=== PATIENT | male | born 1965 | race Two or more races ===

== ENCOUNTER 2021-07-15 15:56 | Emergency (ER) | payer SELFPAY ==
[~2021-07-15] VITALS: Ht 165.1 cm; Wt 70.0 kg
[2021-07-15 19:47] VITALS: BP 128/79
--- NOTE | 2021-07-15 21:13 | PHYS DOC ---
Past Medical History Past Surgical History: No Surgical History General Adult EDM: Chief Complaint: UPPER EXTREMITY INJURY HPI: HPI: Patient is a 56-year-old male who presents to the emergency department for right elbow, forearm and wrist pain that occurred after he slipped on ice and fell onto his arm yesterday afternoon. Patient rates his pain 9 out of 10. No treatment prior to arrival. Patient denies any decreased range of motion or decreased sensation in his extremity but does report swelling to site. He denies hitting his head or loss of consciousness. Review of Systems: Review of Systems: Musculoskeletal: See HPI Integument: See HPI Neurologic: See HPI Heart Score: C/O Chest Pain: N/A Risk Factors: Risk Factors: DM, Current or recent (<one month) smoker, HTN, HLP, family history of CAD, obesity. Risk Scores: Score 0 - 3: 2.5% MACE over next 6 weeks - Discharge Home Score 4 - 6: 20.3% MACE over next 6 weeks - Admit for Clinical Observation Score 7 - 10: 72.7% MACE over next 6 weeks - Early Invasive Strategies Allergies: Allergies: Allergies Coded Allergies Type Severity Reaction Last Updated Verified No Known Drug Allergies 07/15/21 No Physical Exam: PE: Constitutional: Well developed, well nourished, no acute distress, non-toxic appearance. [] HENT: Normocephalic, atraumatic, bilateral external ears normal, oropharynx moist, no oral exudates, nose normal. [] Eyes: PERRLA, EOMI, conjunctiva normal, no discharge. [] Neck: Normal range of motion, no tenderness, supple, no stridor. [] Cardiovascular: Normal peripheral perfusion Lungs & Thorax: Normal work of breathing, no tachypnea Abdomen: Soft and flat Skin: Warm, dry, no erythema, no rash. [] Back: Normal range of motion Extremities: No tenderness, no cyanosis, no clubbing, ROM intact, no edema. [] Right upper extremity: Obvious deformity noted to patient's right forearm, there is swelling noted to patient's right forearm and wrist with ecchymosis to his forearm, no open wounds, range of motion intact, neurovascularly intact. Neurologic: Alert and oriented X 3, normal motor function, normal sensory function, no focal deficits noted. [] Psychologic: Affect normal, judgement normal, mood normal. [] Current Patient Data: Vital Signs: Vital Signs Date Time Temp Pulse Resp B/P (MAP) Pulse Ox O2 Delivery O2 Flow Rate FiO2 07/15/21 19:47 98.0 84 18 128/79 (95) 99 Room Air 98.0 EKG: EKG: [] Radiology/Procedures: Radiology/Procedures: [] Course & Med Decision Making: Course & Med Decision Making Pertinent Labs and Imaging studies reviewed. (See chart for details) [] Patient presents to the emergency department after slipping on ice and falling onto his right forearm yesterday. Imaging was performed of patient's right elbow, forearm and wrist. Distal radius fracture read by this MILKING SYSTEM INSTALLER and supervising physician. Sugartong splint placed, patient tolerated, neuro intact pre and post splint placement. Pain medication given in ER. Patient discharged with pain medication, advised to follow up with ortho and given referral info. Patient given info on fracture and splint care. tag machine operator used. I discussed with patient all findings and diagnostic testing as well as the need to follow-up with PCP for further evaluation and treatment or return to the ER if any new or worsening symptoms. Strict return precautions were also discussed at length. Patient voiced understanding and agreement with the plan. Patient is hemodynamically stable at the time of disposition. Dragon Disclaimer: Dragon Disclaimer: This electronic medical record was generated, in whole or in part, using a voice recognition dictation system. Departure Departure Impression: Primary Impression: Radius fracture Qualified Codes: S52.501A - Unspecified fracture of the lower end of right radius, initial encounter for closed fracture Disposition: HOME / SELF CARE / HOMELESS Condition: GOOD Referrals: NO PCP (PCP) PEDRO PORTILLO Jr. DO Patient Instructions: Wrist Fracture Additional Instructions: Hoy lo vieron en la mary de emergencias por elliott fractura o un hueso roto. Le colocaron elliott frula para ayudar con el dolor y la curacin. Deber hacer un seguimiento con los mdicos ortopdicos de la clnica ortopdica lo antes posible. Consulte la informacin adjunta sobre el mdico de seguimiento. Debe realizar ejercicios de rango de movimiento para evitar la rigidez de las articulaciones. Las frulas ayudan con el dolor y pueden promover la curacin, saeid la inmovilidad puede causar dolor crnico con el tiempo. Consulte estas instrucciones adjuntas con respecto a los ejercicios de rango de movimiento. Mantenga la frula limpia y seca para evitar que se moje. Si la frula se moja, deber reemplazarla. Debe usar hielo y elevacin para ayudar con la hinchazn y el dolor. Blanca las primeras 24 horas, aplique hielo 20 minutos en 20 minutos 4 veces al da. Asegrese de que el hielo est en elliott bolsa de plstico para no mojar la frula. Puede dominguez medicamentos OBED (Tylenol, ibuprofeno, naproxeno) para aliviar el dolor. Regrese al departamento de emergencias si presenta alguno de los siguientes sntomas: Dolor creciente que no mejora con los tratamientos. [place] entumecimiento u hormigueo [place], enrojecimiento, decoloracin de la piel, rotura de la piel, secrecin debajo de la frula o cerca del jani entablillada. Aumento de la incapacidad para vat overhauler la extremidad o los dedos. Mal olor procedente de la frula Fiebre o escalofros Nuseas o vmitos Aturdimiento persistente Estaremos encantados de verle por cualquier otro sntoma relacionado con rodriguez extremidad entablillada. Scripts Hydrocodone Bit/Acetaminophen (HYDROCODONE-APAP 5-325 ) 1 Tab Tablet 1 TAB PO PRN Q6HRS PRN for PAIN for 2 Days, #8 TAB 0 Refills Prov: EDI ASTORGA CIVIL ENGINEERING TEACHER 07/15/21 EDI ASTORGA CIVIL ENGINEERING TEACHER Jul 15, 2021 21:13
[2021-07-15] MEDS ORDERED: HYDROcodone/APAP 5/325MG 1 TAB TABLET PO ONE (22:00)
[2021-07-15] MEDS ORDERED: HYDR-2761 PO (22:08)
--- NOTE | 2021-07-15 22:10 | RAD ---
Exam: Right wrist 3 views. Right forearm 2 views. Right elbow 3 views INDICATION: Fall TECHNIQUE: Frontal, lateral oblique views of the right wrist and right elbow. Frontal and lateral vie ws of the right forearm Comparisons: None FINDINGS: Wrist: There is a impacted fracture at the distal right radial metaphysis. No other fractures are identified . Mild surrounding soft tissue swelling. Joint spaces are well-maintained. Forearm: Redemonstration of impacted distal radial metaphyseal fracture. Other fracture identified. Soft tissu es are unremarkable. Joint spaces are well-maintained. Elbow: Bone mineralization is normal. No acute or healed fractures. Soft tissues are unremarkable. Joint spa malik are well-maintained. IMPRESSION: 1. Impacted fracture of the distal right radial metaphysis. 2. No other fracture identified at the right forearm. 3. No acute osseous abdomen the of the right elbow. Electronically signed by: Chauncey East MD (07/15/2021 10:08 PM) [facility]
== END 2021-07-15 22:38 | disposition home or self-care (01) ==
LOC: ER 15:56
DX: S52.501A Unspecified fracture of the lower end of right radius, initial encounter for closed fracture (principal); W00.0XXA Fall on same level due to ice and snow, initial encounter; Y93.89 Activity, other specified; Y92.89 Other specified places as the place of occurrence of the external cause; Y99.8 Other external cause status
CPT/HCPCS: 29125; 73080; 73090; 73110; 99284

== ENCOUNTER 2021-08-02 13:32 | Emergency (ER) | payer SELFPAY ==
[~2021-08-02] VITALS: Ht 152.4 cm; Wt 58.0 kg
[~2021-08-02 13:32] MED LIST: HYDR-2761 PO
[2021-08-02 15:20] VITALS: BP 131/80
[2021-08-02] MEDS ORDERED: IBUPROFEN 200 MG TABLET. PO ONE (15:45)
--- NOTE | 2021-08-02 16:14 | RAD ---
EXAM: 3 views of the right wrist DATE: 08/02/2021 3:42 PM INDICATION: Reason: known fx 3 weeks ago / Spl. Instructions: / History: COMPARISON: No Prior FINDINGS: Comminuted fracture of the distal radius, stable alignment. Overlying splint obscures fine bony detai l. Neutral radial tilt with flattening of the inclination angle. Resultant ulnar positive variance. IMPRESSION: 1. Comminuted fracture of the distal radius, stable alignment. Electronically signed by: Robi Abel MD (08/02/2021 4:12 PM) E[facility]LE[facility]
--- NOTE | 2021-08-02 16:39 | PHYS DOC ---
Past Medical History Past Surgical History: No Surgical History Smoking Status: Never Smoker Alcohol Use: None Drug Use: None Adult General Chief Complaint Chief Complaint: UPPER EXTREMITY SWELLING HPI HPI Patient is a 56 year old male who presents with right wrist pain that began 3 weeks ago. He rates his pain 5/10, constant and nonradiating. Patient states that he has a known fracture of the right wrist, he is unsure which bone. He states that when the splint was originally placed, he was given follow-up instruction to visit with energy specialist. He states that due to family circumstances and being busy, he was unable to obtain an appointment. He presents today for reevaluation. Patient denies any reinjury or additional trauma. Review of Systems Review of Systems All other systems were reviewed and found to be within normal limits, except as documented in this note. Current Medications Current Medications Current Medications Medications (Trade) Dose Ordered Sig/Devonte Start Time Stop Time Status Last Admin Dose Admin Ibuprofen (Motrin) 600 mg 1X ONCE 08/02/21 15:45 08/02/21 15:46 DC 08/02/21 16:20 600 MG Allergies Allergies Allergies Coded Allergies Type Severity Reaction Last Updated Verified No Known Drug Allergies 07/15/21 No Physical Exam Physical Exam Constitutional: Well developed, well nourished, no acute distress, non-toxic appearance. HENT: Normocephalic, atraumatic, bilateral external ears normal, nose normal. Eyes: EOMI, conjunctiva normal, no discharge. Neck: Normal range of motion, no stridor. Skin: Warm, dry, no erythema, no rash. Extremities: Right wrist is currently in a splint, but he does have wrist tend erness as well as digit 1 tenderness, no edema or obvious deformity, radial pulses 2+ and symmetrical. Extremities otherwise no tenderness, no cyanosis, no clubbing, ROM intact, no edema, no deformity. Neurologic: Alert and oriented x4, steady and symmetrical gait, no focal deficits noted. Current Patient Data Vital Signs Vital Signs Date Time Temp Pulse Resp B/P (MAP) Pulse Ox O2 Delivery O2 Flow Rate FiO2 08/02/21 15:20 98.3 68 18 131/80 (97) 97 Room Air 98.3 Radiology/Procedures Radiology/Procedures PROCEDURE: WRIST 3V RIGHT EXAM: 3 views of the right wrist DATE: 08/02/2021 3:42 PM INDICATION: Reason: known fx 3 weeks ago / Spl. Instructions: / History: COMPARISON: No Prior FINDINGS: Comminuted fracture of the distal radius, stable alignment. Overlying splint obscures fine bony detail. Neutral radial tilt with flattening of the inclination angle. Resultant ulnar positive variance. IMPRESSION: 1. Comminuted fracture of the distal radius, stable alignment. Electronically signed by: Robi Abel MD (08/02/2021 4:12 PM) [facility] PROCEDURE: WRIST 3V RIGHT Exam: XR RT WRIST 3VIEWS History: Wrist fracture Comparison: 07/15/2021 Findings: Comminuted fracture of the right distal radius involving the radiocarpal articular surface and distal radioulnar joint. Impaction shortening of the distal radius as well as radial sided displacement of approximately 7 mm. Findings similar to July for comparison. No definite healing callus identified. diffuse soft tissue swelling about the wrist. Impression: 1. Impacted, displaced comminuted intra-articular fracture of the right distal radius similar to comparison. Electronically signed by: Cl Mckeon MD (08/02/2021 4:39 PM) [facility] Course & Med Decision Making Course & Med Decision Making Pertinent Labs and Imaging studies reviewed. (See chart for details) Patient is a 56-year-old male who presents with known radial fracture for reevaluation. I informed the patient that making an appointment with the orthopedist is the only way to obtain definitive management of his fracture. We will repeat x-rays today and provide p.o. pain management. Original x-ray films were taken with the splint still on, which obscured bony detail on plain films. Will be repeated without the splint. Splint was replaced and wrist was rewrapped after x-ray films were obtained. Patient was instructed to use [id number] analgesics for pain control and to make an appointment with the orthopedist as soon as possible. Patient understands and is agreeable to discharge plan. Patient is Romansh-speaking. History, exam and discharge instructions were conducted in Romansh with verbalized understanding and agreement. Dragon Disclaimer Dragon Disclaimer This electronic medical record was generated, in whole or in part, using a voice recognition dictation system. Departure Departure Impression: Primary Impression: Radius fracture Disposition: HOME / SELF CARE / HOMELESS Condition: STABLE Referrals: NO PCP (PCP) Patient Instructions: Radial Fracture Additional Instructions: INSTRUCCIONES GENERALES DE QUIN DEL DEPARTAMENTO DE EMERGENCIA Shanda por venir hoy al Departamento de Emergencias (ED) de [facility] y confiarnos leyva atencin. Confiamos en que haya tenido elliott experiencia positiva en nuestro Departamento de Emergencias. Si desea hablar con la gerencia del departamento, puede llamar al director al . MARIA T INSTRUCCIONES DE SEGUIMIENTO SON LAS SIGUIENTES: 1. Sesar un seguimiento con leyva mdico de atencin primaria y el ortopedista utilizando la informacin de contacto anterior. Si no tiene un mdico de cabecera, solicite elliott lista de recursos de mdicos o clnicas que puedan ayudarlo con la atencin de seguimiento. 2. El proveedor de emergencia burton interpretado maria t estudios de imgenes, si se ordenaron. El especialista en imgenes de radiologa tambin los jonn. Si hay un cambio en los hallazgos, se le notificar en 48 horas cuando sea posible. 3. Si se burton realizado elilott prueba de laboratorio o un cultivo, se revisarn maria t resultados y se le notificar si necesita un cambio en el tratamiento. 4. Siga las instrucciones verbalizadas y consulte las copias impresas si es necesario. INSTRUCCIONES E INFORMACIN ADICIONALES: 1. Leyva atencin hoy burton sido supervisada por un mdico especialmente capacitado en atencin de emergencia. Muchos problemas requieren ms de elliott evaluacin para un diagnstico y tratamiento completos. Le recomendamos que programe leyva abdoulaye de seguimiento segn lo recomendado para garantizar el tratamiento completo de leyva enfermedad o lesin. Si no puede obtener atencin de seguimiento y contina teniendo un problema, o si leyva condicin empeora, le recomendamos que regrese al servicio de urgencias. 2. No podemos determinar de manera sterling leyva condicin por telfono ni podemos jean consejos mdicos slidos por telfono. Por estas razones de seguridad, si llama para pedir consejo mdico, le pediremos que vaya al servicio de urgencias para elliott evaluacin adicional. 3. Si tiene alguna pregunta sobre estas instrucciones de quin, llame al ED al . INFORMACIN DE SEGURIDAD: En inters de la seguridad, el bienestar y la prevencin de lesiones; le recomendamos que use leyva cinturn de seguridad, si fuma; bastante fumador, y alentamos a la heather a usar un cricket protector para andar en bicicleta y otros eventos deportivos que presenten un mayor riesgo de lesiones en la evelin. SI MARIA T SNTOMAS EMPEORAN O SE DESARROLLAN NUEVOS SNTOMAS, O SI TIENE PREOCUPACIONES SOBRE LEYVA CONDICIN; O SI LEYVA CONDICIN EMPEORA MIENTRAS ESPERA LEYVA ABDOULAYE DE SEGUIMIENTO; PNGASE EN CONTACTO CON LEYVA MDICO DE ATENCIN PRIMARIA, EL MDICO CUYO NOMBRE Y NMERO LE DIERON, O REGRESE AL ED INMEDIATAMENTE. Problem Qualifiers Primary Impression: Radius fracture Encounter type: subsequent encounter Radius location: shaft Fracture type: closed Fracture morphology: comminuted Fracture alignment: nondisplaced Laterality: right Fracture healing: with delayed healing Qualified Codes: S52.354G - Nondisplaced comminuted fracture of shaft of radius, right arm, subsequent encounter for closed fracture with delayed healing KRISTINA DONOHUE Aug 02, 2021 16:39
--- NOTE | 2021-08-02 16:42 | RAD ---
Exam: XR RT WRIST 3VIEWS History: Wrist fracture Comparison: 07/15/2021 Findings: Comminuted fracture of the right distal radius involving the radiocarpal articular surface and distal radioulnar joint. Impaction shortening of the distal radius as well as radial sided displacement of approximately 7 mm. Findings similar to July for comparison. No definite healing callus identified . diffuse soft tissue swelling about the wrist. Impression: 1. Impacted, displaced comminuted intra-articular fracture of the right distal radius similar to abdon ramirez. Electronically signed by: Cl Mckeon MD (08/02/2021 4:39 PM) [facility]
== END 2021-08-02 16:50 | disposition home or self-care (01) ==
LOC: ER 13:32
DX: S52.501A Unspecified fracture of the lower end of right radius, initial encounter for closed fracture (principal); X58.XXXA Exposure to other specified factors, initial encounter; Y93.89 Activity, other specified; Y92.89 Other specified places as the place of occurrence of the external cause; Y99.8 Other external cause status
CPT/HCPCS: 29125; 73110; 99283